=== PATIENT | female | born 1940 | race Caucasian/White ===

== ENCOUNTER 2018-09-28 18:17 | Emergency (ER) | payer MEDICARE, OTHER ==
[2018-09-28] MEDS ORDERED: ACETAMINOPHEN 500 MG TABLET PO ONE (18:33)
--- NOTE | 2018-09-28 18:33 | Emergency Department Record ---
History of Present Illness - General Chief complaint: Pain Stated complaint: PAIN ON LOWER RT SIDE,ESPINAL Time Seen by Provider: 09/28/18 18:19 Source: Patient Mode of Arrival: Ambulatory Limitations: No limitations - History of Present Illness Initial comments: 78 yo female presents to ED for evaluation of right sided flank and abdominal pain intermittently for the past 1 week asscoiated with urinary frequency. Patient denies fevers, chills, nausea, or vomiting symptoms. Patient was recently evaluated for kidney stones by Dr. Malone (see CT report), but is concerned about possible urinary tract infection. Patient has not contacted her PCP regarding her symptoms this week however. MD Complaint: Abdominal Pain, Other Onset/Timin -: Week(s) Location: Right History of Same: No Quality: Aching Consistency: Intermittent Improves with: Nothing Worsens with: Nothing Associated Symptoms: Denies other symptoms - Related Data Allergies Allergy/AdvReac Type Severity Reaction Status Date / Time ciprofloxacin [From Cipro] Allergy ABDOMINAL Verified 09/28/18 18:29 PAIN ciprofloxacin HCl Allergy ABDOMINAL Verified 09/28/18 18:29 [From Cipro] PAIN amoxicillin trihydrate AdvReac SWELLING Verified 09/28/18 18:29 [From Augmentin] OF THE FACE potassium clavulanate AdvReac SWELLING Verified 09/28/18 18:29 [From Augmentin] OF THE FACE Review of Systems Constitutional: Reports: Fever. Denies: Chills, Malaise, Night sweats Eyes: Denies: Eye discharge, Eye pain ENT: Denies: Congestion, Ear pain, Epistaxis Respiratory: Denies: Cough, Dyspnea Cardiovascular: Denies: Dyspnea on exertion Endocrine: Denies: Fatigue, Heat or cold intolerance Gastrointestinal: Reports: Abdominal pain. Denies: Nausea, Vomiting Genitourinary: Reports: Frequency. Denies: Incontinence, Retention Musculoskeletal: Reports: Back pain. Denies: Arthralgia, Gout, Joint swelling Skin: Denies: Bruising, Change in color Neurological: Reports: Headache. Denies: Abnormal gait, Confusion, Tingling, Tremors Psychiatric: Denies: Anxiety Hematological/Lymphatic: Denies: Anemia, Blood Clots Past Medical History - SOCIAL HISTORY Smoking Status: Never smoker Drug Use: None - RESPIRATORY Hx Respiratory Disorders: Yes Hx Asthma: Yes (uses inhaler rarely) Comment:: allergies - CARDIOVASCULAR Hx Cardio Disorders: Yes Hx Hypertension: Yes (good control on meds) - NEURO Hx Neuro Disorders: Yes Hx Dizziness: Yes - GI Hx GI Disorders: Yes Hx Reflux: Yes - Hx Genitourinary Disorders: No - ENDOCRINE Hx Endocrine Disorders: No - MUSCULOSKELETAL Hx Musculoskeletal Disorders: Yes - PSYCH Hx Psych Problems: Yes Hx Anxiety: Yes Hx Depression: Yes (recently on Zoloft) - HEMATOLOGY/ONCOLOGY Hx Hematology/Oncology Disorders: Yes Hx Cancer: Yes (breast) Hx Radiation Therapy: Yes Family Medical History Hx Cancer: Mother, Brother/Sister Hx Heart Disease: Brother/Sister Physical Exam - General General Appearance: Alert, Oriented x3, Cooperative, Mild distress Limitations: No limitations - Head Head exam: Atraumatic, Normocephalic, Normal inspection Head exam detail: negative: Abrasion, Contusion, Luis's sign, General tend erness, Hematoma, Laceration - Eye Eye exam: Normal appearance. negative: Conjunctival injection, Periorbital swelling, Periorbital tenderness, Scleral icterus - ENT Ear exam: negative: Auricular hematoma, Auricular trauma Nasal Exam: negative: Active bleeding, Discharge, Dried blood, Foreign body Mouth exam: negative: Drooling, Laceration, Muffled voice, Tongue elevation - Neck Neck exam: Normal inspection. negative: Meningismus, Tenderness - Respiratory Respiratory exam: Normal lung sounds bilaterally. negative: Respiratory distress, Rhonchi, Stridor, Wheezes - Cardiovascular Cardiovascular Exam: Normal rhythm, Normal heart sounds, Tachycardia - GI/Abdominal GI/Abdominal exam: Soft, Tenderness (Mild TTP RUQ, RLQ, no rebound or guareding symptoms are present on examination). negative: Rebound, Rigid - Rectal Rectal exam: Deferred - exam: Deferred - Extremities Extremities exam: Normal inspection. negative: Pedal edema, Tenderness - Neurological Neurological exam: Alert, Normal gait, Oriented X3 - Psychiatric Psychiatric exam: Normal affect, Normal mood - Skin Skin exam: Normal color. negative: Abrasion Type of lesion: negative: abrasion Course - Reevaluation(s) Reevaluation #1: 09/28/18 18:36 CT Abdomen and Pelvis: 09/16/18 Numerous bilateral non-obstructing renal stones Mild diverticulosis of the distal colon. Single diverticulum with mild inflammatory changes distal colon, no free air or abscess. Hypodense liver lesion, unchanged. Post-inaflammatory nodules lung bases. Reevaluation #2: 09/28/18 19:15 Laboratory studies were reviewed: WBC 15.1 UA: 3-6 RBCs >50 WBCs 4+ Bacteria CT Abodmen and Pelvis ordered to exclude infected stone. Rocephin ordered to infuse. Reevaluation #3: 09/28/18 20:03 Patient is back from CT imaging, Rocephin has complted infusing. CXR: RML infiltrate Preliminary review of the patient's CT imaging appears c/w 4 mm obstructing calculus right proximal ureter. Dr. Urena is covering at [facility] (patient's choice for transfer) for Dr. Early, will page for consultation. Reevaluation #4: 09/28/18 20:22 Case was discussed with Dr. Rios, will accept patient is transfer. Will re-page Dr. Urena for consultation. Reevaluation #5: 09/28/18 20:51 Bed assignment has been received, EMS in enroute to transfer the patient to [facility]. Dr. Urena has not returned page as of yet. Will re-page. 09/28/18 21:29 No return call from Dr. Urena. Patient is enroute to [facility]. 1-Call nursing supervisor clam bed re-contacted and updated on our inability to reach on- call urology with a potential surgical disease. Annel (nursing supervisor clam bed) will reach out to Dr. Urena to make sure she is on-call and aware of the patient. Medical Decision Making - Lab Data Result diagrams: 09/28/18 18:40 09/28/18 18:40 Disposition Disposition: Transfer Clinical Impression: Pyelonephritis, Hydronephrosis with renal and ureteral calculous obstruction Disposition: Acute Care Hospital Transfer Transfer To: [facility] Reason For Transfer: Infected Kidney Stone Accepting Physician: Gabriel Time Discussed w/Accepting Physician: 20:19 Condition: (2) Stable Forms: Patient Portal Access Time of Disposition: 20:19 Quality - Quality Measures Quality Measures: N/A - Blood Pressure Screening Does Patient Have Any of the Following: No Blood Pressure Classification: Pre-Hypertensive BP Reading Systolic Measurement: 151 Diastolic Measurement: 83 Screening for High Blood Pressure: < Pre-Hypertensive BP, F/U Documented > [G8950] Pre-Hypertensive Follow-up Interventions: Referral to alternative/primary care provider.
[2018-09-28] MEDS ORDERED: 0.9 % SODIUM CHLORIDE 1000ML 500 ML IV SCH (18:45)
[2018-09-28 18:48] LABS: ABSOLUTE NEUTROPHIL COUNT 10.93; BASO % 0.2 % (0-6); EOS % 0.3 % (0-6); GRAN % 72.7 % (47-80); HEMATOCRIT 43.5 % (35.0-47.0); HEMOGLOBIN 14.4 gm/dl (11.6-16.0); LYMPH % 16.3 % (16-45); MEAN CELL VOLUME 95.2 fl (81-97); MEAN CORPUSCULAR HEMOGLOBIN 31.5 pg (27-33); MEAN CORPUSCULAR HGB CONC 33.1 g/dl (32-36); MEAN PLATELET VOLUME 9.7 fl (7.4-10.4); MONO % 10.5 % (0-9); PLATELET COUNT 269 K/uL (130-400); RED BLOOD COUNT 4.57 M/uL (3.80-5.40); RED CELL DISTRIBUTION WIDTH 12.5 % (11.5-14.5); WHITE BLOOD COUNT W/O DIFF 15.1 K/uL (4.2-12.2)
[2018-09-28 19:02] LABS: BLOOD UREA NITROGEN 15 mg/dL (8-23)
[2018-09-28 19:03] LABS: URINE BILIRUBIN NEGATIVE (NEGATIVE); URINE BLOOD SMALL (NEGATIVE); URINE COLOR YELLOW; URINE GLUCOSE (UA) NEGATIVE (NEGATIVE); URINE KETONE NEGATIVE (NEGATIVE); URINE LEUKOCYTE ESTERASE LARGE (NEGATIVE); URINE NITRITE POSITIVE (NEGATIVE); URINE PROTEIN TRACE (NEGATIVE); URINE UROBILINOGEN 0.2 E.U./dL (0.20 - 1.00)
[2018-09-28 19:03] LABS: CREATININE 0.9 mg/dL (0.5-0.9); EST GLOMERULAR FILTRATION RATE > 60 mL/min; LIPASE 26 U/L (13-60); TOTAL PROTEIN 7.5 g/dL (6.6-8.7)
[2018-09-28 19:05] LABS: GLUCOSE,RANDOM 120 mg/dL (74-109)
[2018-09-28 19:06] LABS: URINE APPEARANCE CLOUDY
[2018-09-28 19:07] LABS: URINE BACTERIA 4+; URINE EPITHELIAL CELLS 0 - 2 (FEW); URINE WBC >50 (0-2/hpf)
[2018-09-28 19:08] LABS: ALB/GLOB RATIO 1.1 (1.1-1.8); ALKALINE PHOSPHATASE 80 U/L (35-104); ALT/SGPT 13 U/L (<33); AST/SGOT 17 U/L (10.0-35.0)
[2018-09-28] MEDS ORDERED: CEFTRIAXONE 1GM/50ML BAG 1 GM/50 ML BAG IVPB ONE (19:13)
[2018-09-28] MEDS ORDERED: AZITHROMYCIN 500 MG TABLET PO ONE (20:45)
--- NOTE | 2018-09-29 22:00 | RADIOLOGY REPORT ---
EXAM: CHEST 2 VIEWS HISTORY: COUGH, DIFFICULTY IN BREATHING, AND HEART PALPITATIONS FOR A WEEK. FEVER. TECHNIQUE: PA and lateral views. COMPARISON: Two-view chest 02/29/2012. FINDINGS: Heart size is normal. Slightly coarsened interstitial markings in the right middle lobe probably represent some mild infiltrate in this location. Mild apical pleural thickening bilaterally. No pleural effusion or pneumothorax evident. IMPRESSION: SOME MILD INTERSTITIAL INFILTRATE IN THE RIGHT MIDDLE LOBE. JOB NUMBER: [id number] MTDD
--- NOTE | 2018-09-29 22:09 | CT SCAN REPORT ---
EXAM: CT SCAN ABDOMEN/PELVIS WO CONTRAST HISTORY: FEVER, PYELONEPHRITIS. HISTORY OF STONES. RIGHT LOWER QUADRANT FLANK PAIN. TECHNIQUE: Axial CT scan of the abdomen and pelvis performed without oral or IV contrast at the referring physician's request. COMPARISON: CT abdomen and pelvis 09/16/2018. FINDINGS: No calcified gallstones are seen within the gallbladder. There are numerous small calcifications in both kidneys with a similar appearance seen previously consistent with numerous bilaterally currently nonobstructing intrarenal calculi. However, there is progressive hydronephrosis on the right and dilatation of the upper-most right ureter, which quickly leads to a calcification about 4.4 mm in diameter and also about 4.2 mm in length consistent with an upper right ureteral calculus causing a component of obstruction currently. Distal to this, the right ureter is nondilated with no definite additional more distal right ureteral calculus identified. No hydronephrosis or hydroureter on the left with no definite left ureteral calculus or bladder calculus identified. There is a tiny calcification close to the left ureter at the level of the superior acetabulum but this was present previously as well and is probably an adjacent small phlebolith. Evaluation of the bowel and viscera extremely limited without oral or IV contrast. Given this limitation, no definite new hepatic mass evident. Small low-attenuation focus medial segment left lobe of the liver adjacent to the falciform ligament again seen, appearing essentially unchanged. No definite splenic, adrenal, pancreatic, or new renal mass identified compared to the prior study. Small umbilical hernia containing adipose tissue but no bowel. Diverticulosis sigmoid colon again evident. The mild inflammatory changes about an upper sigmoid colon diverticulum seen previously has regressed in the interval and no definite acute diverticulitis identified today. No appendicitis identified. Minor bibasilar streaky atelectasis or infiltrate today has progressed from the prior study. No free intraperitoneal air or free intraperitoneal fluid identified. Prominent facet joint arthropathy in the lower lumbar spine with degenerative disc disease at the lumbosacral interspace. Mild anterior subluxation of L4 on L5 appears to be related to extensive degenerative facet joint disease at this level. IMPRESSION: 1. REGRESSION IN PREVIOUSLY SEEN MILD CHANGES OF ACUTE SIGMOID DIVERTICULITIS BACK ON 09/16/18. 2. NEW UPPER RIGHT URETERAL CALCULUS, HOWEVER, COMPARED TO THE PRIOR STUDY, WHICH APPEARS TO BE CAUSING A COMPONENT OF OBSTRUCTION OF THE RIGHT KIDNEY TODAY. NUMEROUS BILATERAL INTRARENAL CALCULI AGAIN NOTED. 3. EXTENSIVE DEGENERATIVE CHANGES LUMBAR SPINE AGAIN EVIDENT. 4. SMALL UMBILICAL HERNIA CONTAINING ADIPOSE TISSUE BUT NO BOWEL. 5. OTHER CHRONIC-APPEARING FINDINGS, NOTED ABOVE. JOB NUMBER: [id number] [facility]
== END 2018-09-28 21:28 | disposition short-term general hospital (02) ==
LOC: ER 18:17
DX: N13.6 Pyonephrosis (principal); R10.31 Right lower quadrant pain; R51 Headache; I10 Essential (primary) hypertension
CPT/HCPCS: 99285 ×2; 96365; 96361; 83690; 85025; 80053; 81001; 71046; 74176; J0696; J7030

== ENCOUNTER 2019-02-17 10:27 | Emergency (ER) | payer MEDICARE, OTHER ==
[2019-02-17] MEDS ORDERED: ASPIRIN 81 MG CHEWABLE TABLET PO ONE (10:58)
[2019-02-17] MEDS: NITROGLYCERIN 0.4MG SL TABLET #25 BTL SL PRN ×2 (11:06→11:16)
[2019-02-17 11:13] LABS: ABSOLUTE NEUTROPHIL COUNT 3.37; BASO % 0.3 % (0-6); EOS % 3.7 % (0-6); GRAN % 50.2 % (47-80); HEMATOCRIT 43.5 % (35.0-47.0); HEMOGLOBIN 13.8 gm/dl (11.6-16.0); LYMPH % 37.9 % (16-45); MEAN CORPUSCULAR HEMOGLOBIN 30.5 pg (27-33); MEAN CORPUSCULAR HGB CONC 31.7 g/dl (32-36); MEAN PLATELET VOLUME 9.3 fl (7.4-10.4); MONO % 7.9 % (0-9); PLATELET COUNT 331 K/uL (130-400); RED BLOOD COUNT 4.53 M/uL (3.80-5.40); WHITE BLOOD COUNT W/O DIFF 6.7 K/uL (4.2-12.2)
--- NOTE | 2019-02-17 11:13 | Emergency Department Record ---
History of Present Illness - General Chief Complaint: Chest Pain Stated Complaint: CP/DINORAH Time Seen by Provider: 02/17/19 10:50 Source: Patient Mode of Arrival: Ambulatory Limitations: No limitations - History of Present Illness Initial Comments: pt has been having chest pressure for 2 days. itis constant and nothing makes it better or worse. she feels sob and has nausea. she had her thyroid removed 6wks ago. MD Complaint: Chest pain Onset/Timin -: Days(s) Pain Location: Substernal Quality: Heaviness Consistency: Constant Improves With: Nothing Worsens With: Nothing Treatments Prior to Arrival: None - Related Data Home Medications Medication Instructions Recorded Confirmed Last Taken Alendronate Sodium 70 mg PO WEEKLY 02/17/19 02/17/19 Unknown Alprazolam 0.5 mg PO DAILY 02/17/19 02/17/19 Unknown Levothyroxine Sodium [Synthroid] 112 mcg PO DAILY 02/17/19 02/17/19 Unknown Losartan Potassium 100 mg PO DAILY 02/17/19 02/17/19 Unknown Omeprazole 20 mg PO DAILY 02/17/19 02/17/19 Unknown Allergies Allergy/AdvReac Type Severity Reaction Status Date / Time ciprofloxacin [From Cipro] Allergy ABDOMINAL Verified 02/17/19 10:37 PAIN ciprofloxacin HCl Allergy ABDOMINAL Verified 02/17/19 10:37 [From Cipro] PAIN amoxicillin trihydrate AdvReac SWELLING Verified 02/17/19 10:37 [From Augmentin] OF THE FACE potassium clavulanate AdvReac SWELLING Verified 02/17/19 10:37 [From Augmentin] OF THE FACE Travel Screening - Travel/Exposure Within Last 30 Days Have you traveled within the last 30 days?: No Review of Systems Reviewed: No additional complaints except as noted below Constitutional: Reports: As per HPI. Denies: Chills, Fever, Malaise, Night sweats, Weakness, Weight change Eyes: Reports: As per HPI. Denies: Eye discharge, Eye pain, Photophobia, Vision change ENT: Reports: As per HPI. Denies: Congestion, Dental pain, Ear pain, Epistaxis, Hearing loss, Throat pain Respiratory: Reports: As per HPI, Dyspnea. Denies: Cough, Hemoptysis, Stridor, Wheezes Cardiovascular: Reports: As per HPI, Chest pain. Denies: Arrhythmia, Dyspnea on exertion, Edema, Murmurs, Orthopnea, Palpitations, Paroxysmal nocturnal dyspnea, Rheumatic Fever, Syncope Endocrine: Reports: As per HPI. Denies: Fatigue, Heat or cold intolerance, Polydipsia, Polyuria Gastrointestinal: Reports: As per HPI. Denies: Abdominal pain, Constipation, Diarrhea, Hematemesis, Hematochezia, Melena, Nausea, Vomiting Genitourinary: Reports: As per HPI. Denies: Abnormal menses, Discharge, Dyspareunia, Dysuria, Frequency, Hematuria, Incontinence, Retention, Urgency Musculoskeletal: Reports: As per HPI. Denies: Arthralgia, Back pain, Gout, Joint swelling, Myalgia, Neck pain Skin: Reports: As per HPI. Denies: Bruising, Change in color, Change in hair/nails, Lesions, Pruritus, Rash Neurological: Reports: As per HPI. Denies: Abnormal gait, Confusion, Headache, Numbness, Paresthesias, Seizure, Tingling, Tremors, Vertigo, Weakness Psychiatric: Reports: As per HPI. Denies: Anxiety, Auditory hallucinations, Dep ression, Homicidal thoughts, Suicidal thoughts, Visual hallucinations Hematological/Lymphatic: Reports: As per HPI. Denies: Anemia, Blood Clots, Easy bleeding, Easy bruising, Swollen glands Past Medical History - SOCIAL HISTORY Smoking Status: Never smoker Alcohol Use: None Drug Use: None - RESPIRATORY Hx Respiratory Disorders: Yes Hx Asthma: Yes (uses inhaler rarely) Comment:: allergies - CARDIOVASCULAR Hx Cardio Disorders: Yes Hx Hypertension: Yes - NEURO Hx Neuro Disorders: Yes Hx Dizziness: Yes - GI Hx GI Disorders: Yes Hx Reflux: Yes - Hx Genitourinary Disorders: No - ENDOCRINE Hx Endocrine Disorders: No - MUSCULOSKELETAL Hx Musculoskeletal Disorders: Yes - PSYCH Hx Psych Problems: Yes Hx Anxiety: Yes Hx Depression: Yes - HEMATOLOGY/ONCOLOGY Hx Hematology/Oncology Disorders: Yes Hx Cancer: Yes (breast) Hx Radiation Therapy: Yes Family Medical History Any Significant Family History?: Yes Hx Cancer: Mother, Brother/Sister Hx Heart Disease: Brother/Sister Physical Exam - General General Appearance: Alert, Oriented x3, Cooperative, Mild distress - Head Head exam: Normal inspection - Eye Eye exam: Normal appearance, PERRL, EOMI Pupils: Normal accommodation - ENT ENT exam: Normal exam, Mucous membranes moist, Normal external ear exam, Normal orophraynx Ear exam: Normal external inspection. negative: External canal tenderness Nasal Exam: Normal inspection. negative: Discharge, Sinus tenderness Mouth exam: Normal external inspection, Tongue normal Teeth exam: Normal inspection. negative: Dental caries Throat exam: Normal inspection. negative: Tonsillar erythema, Tonsillar exudate - Neck Neck exam: Normal inspection, Full ROM. negative: Tenderness - Respiratory Respiratory exam: Normal lung sounds bilaterally. negative: Respiratory distress - Cardiovascular Cardiovascular Exam: Normal rhythm, Normal heart sounds, Tachycardia - GI/Abdominal GI/Abdominal exam: Soft, Normal bowel sounds. negative: Tenderness - Rectal Rectal exam: Deferred - exam: Deferred - Extremities Extremities exam: Normal inspection, Full ROM, Normal capillary refill. negative: Tenderness - Back Back exam: Reports: Normal inspection, Full ROM. Denies: Muscle spasm, Rash noted, Tenderness - Neurological Neurological exam: Alert, CN II-XII intact, Normal gait, Oriented X3 - Psychiatric Psychiatric exam: Normal affect, Normal mood - Skin Skin exam: Dry, Intact, Normal color, Warm Course Vital Signs 02/17/19 10:31 Temperature 98.5 F Pulse Rate 110 H Respiratory 20 Rate Blood Pressure 197/121 Pulse Ox 94 L - Reevaluation(s) Reevaluation #1: 02/17/19 15:08 ct neg except emphysema. 2 sets enzymes neg. pt has had pain for 2solid days, unlikely to be cardiac. ntg did not help Medical Decision Making - Lab Data Result diagrams: 02/17/19 10:35 02/17/19 10:35 Disposition Disposition: Discharge Clinical Impression: Chest pain Qualifiers: Chest pain type: unspecified Qualified Code(s): R07.9 - Chest pain, unspecified Disposition: Home, Self-Care Condition: (1) Good Instructions: Chest Pain (ED) Additional Instructions: follow up with family doctor. return sooner if worse. take aspirin 81mg a day Forms: Patient Portal Access Quality - Quality Measures Quality Measures: N/A - Blood Pressure Screening Does Patient Have Any of the Following: Active Dx of HTN Blood Pressure Classification: Hypertensive Reading Systolic Measurement: 197 Diastolic Measurement: 121 Screening for High Blood Pressure: Patient Exclusion, Hx of HTN [G9744]
[2019-02-17 11:32] LABS: BLOOD UREA NITROGEN 14 mg/dL (8-23); CREATININE 0.8 mg/dL (0.5-0.9); EST GLOMERULAR FILTRATION RATE > 60 mL/min
[2019-02-17 11:33] LABS: TOTAL PROTEIN 7.4 g/dL (6.6-8.7)
[2019-02-17 11:35] LABS: GLUCOSE,RANDOM 103 mg/dL (74-109)
[2019-02-17 11:37] LABS: ALB/GLOB RATIO 1.6 (1.1-1.8); ALBUMIN 4.5 g/dL (4.0-5.0); ALT/SGPT 18 U/L (<33); AST/SGOT 25 U/L (10.0-35.0)
[2019-02-17 11:38] LABS: ALKALINE PHOSPHATASE 60 U/L (35-104); CREATINE PHOSPHOKINASE 294 U/L (26-192)
[2019-02-17 11:48] LABS: THYROID STIMULATING HORMONE 1.79 uIU/mL (0.270-4.20)
--- NOTE | 2019-02-17 13:16 | CT ANGIOGRAM REPORT ---
EXAMINATION: CT Angiography of the Thorax EXAM DATE: 02/17/2019 12:43 PM TECHNIQUE: Standard protocol CT angiogram images were obtained through the chest following the admini stration of intravenous contrast. Coronal and sagittal MIP 3-D reformations were performed. IV Contrast: The amount and type of contrast are recorded in the medical record. INDICATION: chest pressure post op. COMPARISON: None ENCOUNTER: Not applicable FINDINGS: Pulmonary Artery: No pulmonary embolism is present. Aorta: No thoracic aortic aneurysm or dissection is present. Right Heart Strain: None. Heart : There is no pericardial effusion. Johana and Mediastinum: No lymphadenopathy. Lung Parenchyma: Mild emphysematous changes are seen with an air cyst in the right lower hemithorax. Slight prominence of interstitium and mild areas of groundglass opacity. No focal airspace opacity. Central Airways: Normal. Pleural Effusion: No pleural effusion or evidence of pneumothorax. Upper Abdomen: Unremarkable. Musculoskeletal and Chest Wall: Mild multilevel degenerative changes are seen in the thoracic spine. IMPRESSION: 1. No evidence of a central pulmonary artery embolism. 2. No evidence of thoracic aortic aneurysm or dissection. 3. No evidence of pneumothorax, pleural effusion or airspace opacity. 4. Mild emphysematous change, interstitial densities and groundglass opacity are noted. Dictated by: Jesús Galeano MD on 02/17/2019 1:12 PM. .
[2019-02-17] MEDS ORDERED: 0.9 % SODIUM CHLORIDE 1,000 ML BAG IV ONE (13:28)
[2019-02-17] MEDS ORDERED: KETOROLAC 30 MG/ML VIAL IVP ONE (13:29)
[2019-02-17 14:59] LABS: CREATINE PHOSPHOKINASE 227 U/L (26-192)
[2019-02-17 15:00] LABS: CKMB 2.3 ng/mL (<3.77)
== END 2019-02-17 15:17 | disposition home or self-care (01) ==
LOC: ER 10:27
DX: R07.89 Other chest pain (principal); R06.02 Shortness of breath; R11.0 Nausea; I10 Essential (primary) hypertension; R79.89 Other specified abnormal findings of blood chemistry
CPT/HCPCS: 99284 ×2; 96374; 96361; 82550; 85025; 82553; 80053; 84443; 84436; 84484; 85379; 83880; 71275; 93005; 93010; Q9967; J1885; J7030